=== PATIENT | male | born 2000 | race Caucasian/White ===

== ENCOUNTER 2020-03-24 00:22 | Emergency (ER) | payer OTHER ==
[~2020-03-24] VITALS: Ht 185.4 cm; Wt 86.4 kg
[2020-03-24 00:31] VITALS: TEMP 99.2
[2020-03-24] MEDS ORDERED: CEPHALEXIN500 M1 PO (02:08)
[2020-03-24 02:40] VITALS: BP 126/73; PULSE 91
== END 2020-03-24 02:40 | disposition home or self-care (01) ==
LOC: COL.ER 00:22
DX: S21.112A Laceration without foreign body of left front wall of thorax without penetration into thoracic cavity, initial encounter (principal); F17.290 Nicotine dependence, other tobacco product, uncomplicated; F10.929 Alcohol use, unspecified with intoxication, unspecified; W01.198A Fall on same level from slipping, tripping and stumbling with subsequent striking against other object, initial encounter; Y92.410 Unspecified street and highway as the place of occurrence of the external cause
CPT/HCPCS: Q9967

== ENCOUNTER → 2020-04-04 | Outpatient (CLI) | payer OTHER ==
[~2020-04-04] MED LIST: CEPHALEXIN500 M1 PO
[2020-04-04 12:48] VITALS: BP 134/83; PULSE 95; TEMP 98.4
== END ==
LOC: COL.ER 12:37
DX: Z48.02 Encounter for removal of sutures (principal)